=== PATIENT | female | born 1985 | race Caucasian/White ===

== ENCOUNTER 2020-02-05 01:07 | Emergency (ER) | payer SELFPAY ==
[2020-02-05] MEDS ORDERED: NORMAL SALINE 1000 ML 1,000 ML IV ONE (02:22)
--- NOTE | 2020-02-05 02:25 | ER Document Report ---
ED Substance Abuse / Acc. OD - General Chief Complaint: ETOH Abuse Stated Complaint: ETOH Time Seen by Provider: 02/05/20 02:13 Notes: Patient is a 34-year-old female that comes emergency department for chief complaint of drug abuse. Mother is at bedside, she states she took her to [facility] center but they sent her over here for medical clearance. Patient states she used heroin after midnight tonight, smokes crack, and also does an assor tment of other street drugs. Patient does not want any prescriptions, she denies , she states she wants "detox". Mom states she has had detox in the past unsuccessfully. Mom is very supportive of her getting into detox at this time. Patient denies using drugs to kill herself, she states she does so "because I am an addict". Patient does state that she feels like she has "a parasite". She has multiple picked lesions over her body, she states the scabs will burn and bother her. She denies any other complaints including fever, shortness of breath, chest pain, vomiting. - Related Data Allergies/Adverse Reactions: No Known Allergies Allergy (Unverified 04/07/11 09:10) Past Medical History - General Information source: Patient, Parent - Social History Smoking Status: Current Every Day Smoker Drug Abuse: Cocaine, Heroin, Marijuana, Methamphetamine Lives with: Parents Family History: Reviewed & Not Pertinent Patient has homicidal ideation: No - Immunizations Hx Diphtheria, Pertussis, Tetanus Vaccination: Yes - unknown Review of Systems - Review of Systems Constitutional: See HPI EENT: No symptoms reported Cardiovascular: No symptoms reported Respiratory: No symptoms reported Gastrointestinal: No symptoms reported Genitourinary: No symptoms reported Female Genitourinary: No symptoms reported Musculoskeletal: No symptoms reported Skin: No symptoms reported Hematologic/Lymphatic: No symptoms reported Neurological/Psychological: See HPI Physical Exam - Vital signs Vitals: Pulse Ox 98 02/05/20 01:19 - Notes Notes: GENERAL: Patient is sleeping but easily aroused. Patient is very disheveled in appearance. HEAD: Normocephalic, atraumatic. EYES: Pupils equal, round, and reactive to light. Extraocular movements intact. ENT: Oral mucosa dry, tongue midline. Oropharynx unremarkable. Airway patent. NECK: Full range of motion. Supple. Trachea midline. No lymphadenopathy. LUNGS: Clear to auscultation bilaterally, no wheezes, rales, or rhonchi. No respiratory distress. Non-tender chest wall. HEART: Regular rate and rhythm. No murmur ABDOMEN: Soft, non-tender. Non-distended. EXTREMITIES: Moves all 4 extremities spontaneously. No edema, normal radial and dorsalis pedis pulses bilaterally. No cyanosis. BACK: no cervical, thoracic, lumbar midline tenderness. No saddle anesthesia, normal distal neurovascular exam. Moves all extremities in full range of motion. NEUROLOGICAL: Drowsy but when aroused she is oriented x3. Normal speech. Cranial nerves II through XII grossly intact. Strength 5/5 in all extremities. PSYCH: Flat affect SKIN: Scattered picked and sccabbed lesions over mainly the extremities. No areas of pain, significant erythema, fluctuance, induration. No overt signs of infection. Course - Re-evaluation Re-evalutation: Patient sleeping but easily aroused. Patient is oriented to person, place, events. Patient is cooperative. Patient verbalizing that she wants detox. Patient is not suicidal or homicidal. Patient's vital signs are unremarkable. Physical exam unremarkable except for multiple picked areas over the skin but there is no overt evidence of abscess or cellulitis. Discussed with mom, mom states she is going to go home and she will follow-up with her later today, mom is very supportive of patient being in detox. Plan is still for patient to go to [facility] for detox. CBC, chemistry unremarkable, test negative, urinalysis unremarkable, tox screen shows amphetamines, cocaine, opiates, and marijuana, alcohol negative. Remaining work-up unremarkable. Based on this and patient's vital signs when patient is less sedated/more alert patient will be discharged to [facility]. We did get the patient up and attempt ambulate her but she is still very drowsy, I feel patient is a fall risk at this time although she is protecting her airway and is easily aroused and cooperative. Mom did state patient had not slept in almost 8 days because of her drug abuse. Patient has been given IV fluids. Patient will be discharged when she ambulates without any difficulty, patient does state agreement. - Vital Signs Vital signs: Temp Pulse Resp BP Pulse Ox 15 131/84 H 99 02/05/20 01:22 02/05/20 01:22 02/05/20 01:22 - Laboratory Result Diagrams: 02/05/20 01:43 02/05/20 01:43 Laboratory results interpreted by me: 02/05/20 02/05/20 02/05/20 01:43 01:43 01:43 RDW 14.4 H Urine Urobilinogen 4.0 H Salicylates < 1.0 L Acetaminophen < 10 L - EKG Interpretation by Me Additional EKG results interpreted by me: EKG shows sinus rhythm at a rate of 72, QTc 421, normal axis, no T wave inversions or ST segment changes in consecutive leads. Discharge - Discharge Clinical Impression: Polysubstance abuse, Drug dependence Condition: Stable Disposition: OTHER Additional Instructions: Go directly to [facility] for detox for drug dependence. Return to the emergency department for any concerning symptoms or something is not right.
[2020-02-05 02:35] LABS: ABSOLUTE BASOPHILS # (AUTO) 0.1 10^3/uL (0.0-0.2); ABSOLUTE EOSINOPHILS # (AUTO) 0.1 10^3/uL (0.0-0.6); ABSOLUTE LYMPHOCYTES (AUTO) 2.8 10^3/uL (0.5-4.7); ABSOLUTE MONOCYTES (AUTO) 0.7 10^3/uL (0.1-1.4); BASOPHILS % (AUTO) 0.9 % (0-2); EOSINOPHILS % (AUTO) 0.9 % (0-6); HEMATOCRIT 39.8 % (36.0-47.0); HEMOGLOBIN 13.6 g/dL (12.0-15.5); LYMPHOCYTES % (AUTO) 28.7 % (13-45); MEAN CORPUSCULAR HEMOGLOBIN 29.9 pg (27.0-33.4); MEAN CORPUSCULAR HGB CONC 34.2 g/dL (32.0-36.0); MEAN CORPUSCULAR VOLUME 87 fl (80-97); MONOCYTES % (AUTO) 7.7 % (3-13); PLATELET COUNT 260 10^3/uL (150-450); RED BLOOD COUNT 4.55 10^6/uL (3.72-5.28); RED CELL DISTRIBUTION WIDTH 14.4 % (11.5-14.0); SEGMENTED NEUTROPHILS % (AUTO) 61.8 % (42-78); TOTAL CELLS COUNTED % (AUTO) 100 %; WHITE BLOOD COUNT 9.7 10^3/uL (4.0-10.5)
[2020-02-05 02:46] LABS: ALBUMIN 4.1 g/dL (3.5-5.0); ALKALINE PHOSPHATASE 60 U/L (38-126); ANION GAP 10 (5-19); ASPARTATE AMINO TRANSFERASE 25 U/L (14-36); BILIRUBIN,DIRECT 0.3 mg/dL (0.0-0.4); BILIRUBIN,TOTAL 0.4 mg/dL (0.2-1.3); BLOOD UREA NITROGEN 13 mg/dL (7-20); CALCIUM 9.4 mg/dL (8.4-10.2); CARBON DIOXIDE 27 mmol/L (22-30); CHLORIDE 104 mmol/L (98-107); CREATINE KINASE 78 U/L (30-135); GLUCOSE 109 mg/dL (75-110); POTASSIUM 4.3 mmol/L (3.6-5.0); TOTAL PROTEIN 7.2 g/dL (6.3-8.2)
[2020-02-05 02:48] LABS: ACETAMINOPHEN < 10 ug/mL (10-30); ALCOHOL < 10 mg/dL (NONE DETECTED); SALICYLATE < 1.0 mg/dL (2.0-20.0)
[2020-02-05 03:09] LABS: APPEARANCE,URINE SLIGHTLY-CLOUDY; BILIRUBIN,URINE NEGATIVE (NEGATIVE); COLOR,URINE YELLOW; GLUCOSE, URINE NEGATIVE (NEGATIVE); KETONES,URINE NEGATIVE (NEGATIVE); LEUKOCYTE ESTERASE,URINE NEGATIVE (NEGATIVE); NITRITE,URINE NEGATIVE (NEGATIVE); PROTEIN,URINE NEGATIVE (NEGATIVE); URINE SPECIFIC GRAVITY 1.023
[2020-02-05 03:27] LABS: URINE BARBITURATES SCREEN NEGATIVE; URINE BENZODIAZEPINES SCREEN NEGATIVE; URINE METHADONE SCREEN NEGATIVE; URINE PHENCYCLIDINE SCREEN NEGATIVE
[2020-02-05 03:31] LABS: URINE MARIJUANA (THC) SCREEN UNCONFIRMED POSITIVE
[2020-02-05 04:38] LABS: URINE COCAINE SCREEN UNCONFIRMED POSITIVE
--- NOTE | 2020-02-05 12:43 | EKG REPORT ---
SEVERITY:- NORMAL ECG - SINUS RHYTHM : Confirmed by: Suhas Daigle MD 05-Feb-2020 12:43:29
[2020-02-05 14:47] VITALS: BP 118/69
== END 2020-02-05 14:45 | disposition other institution (70) ==
LOC: ER 01:07
DX: F10.10 Alcohol abuse, uncomplicated (principal); F19.20 Other psychoactive substance dependence, uncomplicated; F17.200 Nicotine dependence, unspecified, uncomplicated
CPT/HCPCS: 93005; 99284; 96360; 36415; 80307 ×4; 82550; 84703; 85025; 80053; 81001; 93010; J7030